=== PATIENT | male | born 1970 | race African-American/Black ===

== ENCOUNTER 2017-06-29 12:43 | Emergency (ER) | payer SELFPAY ==
[~2017-06-29] VITALS: Ht 175.3 cm; Wt 78.0 kg
[2017-06-29] MEDS ORDERED: KETOROLAC 60MG/2ML VIAL IM ONE (14:45)
[2017-06-29 14:52] VITALS: BP 119/65
== END 2017-06-29 15:43 | disposition home or self-care (01) ==
LOC: ER 12:43
DX: M62.830 Muscle spasm of back (principal); S80.01XA Contusion of right knee, initial encounter; V49.40XA Driver injured in collision with unspecified motor vehicles in traffic accident, initial encounter; Y93.89 Activity, other specified; Y92.410 Unspecified street and highway as the place of occurrence of the external cause; F17.210 Nicotine dependence, cigarettes, uncomplicated
CPT/HCPCS: 73562; 96372; 99284; J1885